=== PATIENT | male | born 1985 | race American Indian/Alaskan Native ===

== ENCOUNTER 2019-02-14 03:16 | Emergency (ER) | payer SELFPAY ==
[2019-02-14] MEDS ORDERED: NACL 0.9% 1000 ML 1,000 ML IV ONE ×2 (07:42→10:57)
--- NOTE | 2019-02-14 07:43 | Emergency Department Report ---
ED General Adult HPI - General Chief complaint: Syncope Stated complaint: SYNCOPE/ETOH Time Seen by Provider: 02/14/19 07:32 Source: patient, EMS Mode of arrival: Ambulatory Limitations: No Limitations - History of Present Illness Initial comments: And is a 33-year-old male past medical history of alcoholism who presents with syncope that occurred today. Patient states that he was drinking and then he fell over. Patient currently denies having any pain he states he drinks every single day. Patient denies having any chest pain any nausea or any vomiting. Severity scale (0 -10): 0 - Related Data Allergies Allergy/AdvReac Type Severity Reaction Status Date / Time No Known Allergies Allergy Unverified 02/14/19 04:04 ED Review of Systems ROS: Stated complaint: SYNCOPE/ETOH Other details as noted in HPI Constitutional: denies: chills, fever Eyes: denies: eye pain, eye discharge, vision change ENT: denies: ear pain, throat pain Respiratory: denies: cough, shortness of breath, wheezing Cardiovascular: syncope. denies: chest pain, palpitations Endocrine: no symptoms reported Gastrointestinal: denies: abdominal pain, nausea, diarrhea Genitourinary: denies: urgency, dysuria Musculoskeletal: denies: back pain, joint swelling, arthralgia Skin: denies: rash, lesions Neurological: denies: headache, weakness, paresthesias Psychiatric: denies: anxiety, depression Hematological/Lymphatic: denies: easy bleeding, easy bruising ED Past Medical Hx - Past Medical History Previous Medical History?: No - Surgical History Past Surgical History?: Yes Additional Surgical History: Left leg achilles tendon surgery - Social History Smoking Status: Current Every Day Smoker Substance Use Type: Alcohol ED Physical Exam - General Limitations: No Limitations General appearance: alert, in no apparent distress - Head Head exam: Present: atraumatic, normocephalic - Eye Eye exam: Present: normal appearance - ENT ENT exam: Present: mucous membranes moist - Neck Neck exam: Present: normal inspection - Respiratory Respiratory exam: Present: normal lung sounds bilaterally. Absent: respiratory distress - Cardiovascular Cardiovascular Exam: Present: normal rhythm, tachycardia. Absent: systolic mur mur, diastolic murmur, rubs, gallop - GI/Abdominal GI/Abdominal exam: Present: soft, normal bowel sounds - Rectal Rectal exam: Present: deferred - Extremities Exam Extremities exam: Present: normal inspection - Back Exam Back exam: Present: normal inspection - Neurological Exam Neurological exam: Present: alert, oriented X3 - Psychiatric Psychiatric exam: Present: normal affect, normal mood - Skin Skin exam: Present: warm, dry, intact, normal color. Absent: rash ED Course Vital Signs 02/14/19 02/14/19 04:11 06:39 Temperature 98.5 F 98.6 F Pulse Rate 114 H 106 H Respiratory 20 12 Rate Blood Pressure 136/88 Blood Pressure 131/86 [Right] O2 Sat by Pulse 97 98 Oximetry ED Medical Decision Making - Lab Data Result diagrams: 02/14/19 08:42 02/14/19 08:42 Lab Results 02/14/19 02/14/19 02/14/19 Range/Units 05:33 05:46 08:42 WBC 6.6 (4.5-11.0) K/mm3 RBC 5.09 H (3.65-5.03) M/mm3 Hgb 15.8 H (11.8-15.2) gm/dl Hct 46.9 H (35.5-45.6) % MCV 92 (84-94) fl MCH 31 (28-32) pg MCHC 34 (32-34) % RDW 15.3 H (13.2-15.2) % Plt Count 334 (140-440) K/mm3 Lymph % (Auto) 44.6 H (13.4-35.0) % Beaver % (Auto) 7.5 H (0.0-7.3) % Eos % (Auto) 0.9 (0.0-4.3) % Baso % (Auto) 0.8 (0.0-1.8) % Lymph # 2.9 (1.2-5.4) K/mm3 Beaver # 0.5 (0.0-0.8) K/mm3 Eos # 0.1 (0.0-0.4) K/mm3 Baso # 0.0 (0.0-0.1) K/mm3 Seg Neutrophils % 46.2 (40.0-70.0) % Seg Neutrophils # 3.0 (1.8-7.7) K/mm3 Sodium (137-145) mmol/L Potassium (3.6-5.0) mmol/L Chloride (98-107) mmol/L Carbon Dioxide (22-30) mmol/L Anion Gap mmol/L BUN (9-20) mg/dL Creatinine (0.8-1.5) mg/dL Estimated GFR ml/min BUN/Creatinine Ratio % Glucose (75-100) mg/dL POC Glucose 85 (70-105) Calcium (8.4-10.2) mg/dL Total Bilirubin (0.1-1.2) mg/dL AST (5-40) units/L ALT (7-56) units/L Alkaline Phosphatase (35-129) units/L Total Protein (6.3-8.2) g/dL Albumin (3.9-5) g/dL Albumin/Globulin Ratio % Plasma/Serum Alcohol 0.27 H (0-0.07) % 02/14/19 Range/Units 08:42 WBC (4.5-11.0) K/mm3 RBC (3.65-5.03) M/mm3 Hgb (11.8-15.2) gm/dl Hct (35.5-45.6) % MCV (84-94) fl MCH (28-32) pg MCHC (32-34) % RDW (13.2-15.2) % Plt Count (140-440) K/mm3 Lymph % (Auto) (13.4-35.0) % Beaver % (Auto) (0.0-7.3) % Eos % (Auto) (0.0-4.3) % Baso % (Auto) (0.0-1.8) % Lymph # (1.2-5.4) K/mm3 Beaver # (0.0-0.8) K/mm3 Eos # (0.0-0.4) K/mm3 Baso # (0.0-0.1) K/mm3 Seg Neutrophils % (40.0-70.0) % Seg Neutrophils # (1.8-7.7) K/mm3 Sodium 148 H (137-145) mmol/L Potassium 4.3 (3.6-5.0) mmol/L Chloride 106.9 (98-107) mmol/L Carbon Dioxide 25 (22-30) mmol/L Anion Gap 20 mmol/L BUN 16 (9-20) mg/dL Creatinine 0.9 (0.8-1.5) mg/dL Estimated GFR > 60 ml/min BUN/Creatinine Ratio 18 % Glucose 81 (75-100) mg/dL POC Glucose (70-105) Calcium 9.1 (8.4-10.2) mg/dL Total Bilirubin 0.30 (0.1-1.2) mg/dL AST 48 H (5-40) units/L ALT 31 (7-56) units/L Alkaline Phosphatase 70 (35-129) units/L Total Protein 7.7 (6.3-8.2) g/dL Albumin 4.8 (3.9-5) g/dL Albumin/Globulin Ratio 1.7 % Plasma/Serum Alcohol (0-0.07) % - EKG Data -: EKG Interpreted by Ks - EKG Data 02/14/19 12:33 EKG shows normal sinus rhythm no ST segment elevation no T wave inversion normal axis - Medical Decision Making Chief medical diagnosis: Alcohol intoxication Differential medical diagnosis: Dehydration, hypoglycemia, arrhythmia I will give blood work EKG IV fluids blood-alcohol level and will reevaluate patient Patient's alcohol level is 270 after a couple hours patient is able tolerate by mouth and clinically sober. Patient's mother wants patient to have inpatient detox that patient is refusing detox patient demands to leave the emergency department. 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 I will discharge patient patient agrees with plan. Critical care attestation.: If time is entered above; I have spent that time in minutes in the direct care of this critically ill patient, excluding procedure time. ED Disposition Clinical Impression: Alcoholism Syncope Qualifiers: Syncope type: vasovagal syncope Qualified Code(s): R55 - Syncope and collapse Disposition: TO HOME OR SELFCARE Is pt being admited?: No Does the pt Need Aspirin: No Condition: Stable Instructions: Syncope (ED), Alcohol Intoxication (ED), Abuse of Alcohol (ED) Referrals: PRIMARY CAREMD [Primary Care Provider] - 3-5 Days ANALIA CUMMINGS MD [Staff Physician] - 3-5 Days
--- NOTE | 2019-02-14 08:17 | XRay Report ---
CHEST 2 VIEWS INDICATION / CLINICAL INFORMATION: cough. COMPARISON: None available. FINDINGS: SUPPORT DEVICES: None. HEART / MEDIASTINUM: No significant abnormality. LUNGS / PLEURA: No significant pulmonary or pleural abnormality. No pneumothorax. ADDITIONAL FINDINGS: No significant additional findings. IMPRESSION: 1. No acute findings. Signer Name: Marcio Rowell MD Signed: 02/14/2019 8:13 AM Workstation Name: [id number]
[2019-02-14 09:17] LABS: Basophils % (Auto) 0.8 % (0.0-1.8); Eosinophils # (Auto) 0.1 K/mm3 (0.0-0.4); Eosinophils % (Auto) 0.9 % (0.0-4.3); Hematocrit 46.9 % (35.5-45.6); Hemoglobin 15.8 gm/dl (11.8-15.2); Lymphocytes # (Auto) 2.9 K/mm3 (1.2-5.4); Lymphocytes % (Auto) 44.6 % (13.4-35.0); Mean Corpuscular HGB Conc 34 % (32-34); Mean Corpuscular Volume 92 fl (84-94); Monocytes # (Auto) 0.5 K/mm3 (0.0-0.8); Monocytes % (Auto) 7.5 % (0.0-7.3); Platelet Count 334 K/mm3 (140-440); Red Blood Count 5.09 M/mm3 (3.65-5.03); Red Cell Distribution Width 15.3 % (13.2-15.2)
[2019-02-14 09:38] LABS: Alanine Aminotransferase 31 units/L (7-56); Albumin 4.8 g/dL (3.9-5); BUN/Creatinine Ratio 18; Blood Urea Nitrogen 16 mg/dL (9-20); Calcium 9.1 mg/dL (8.4-10.2); Hemolysis Index 5
[2019-02-14 12:32] VITALS: BP 110/66
== END 2019-02-14 12:32 | disposition home or self-care (01) ==
LOC: ED 03:16
DX: R55 Syncope and collapse (principal); F10.20 Alcohol dependence, uncomplicated; F17.200 Nicotine dependence, unspecified, uncomplicated
CPT/HCPCS: 36415; 71046; 80053; 82962; 85025; 99284; J7030; 80320; G0480